=== PATIENT | female | born 1945 | race Caucasian/White ===

== ENCOUNTER 2021-01-07 01:50 | Observation (INO) | payer MEDICARE ==
[2021-01-07] VITALS (9 sets, daily range): BP systolic 117–133; BP diastolic 52–96; PULSE 74–96; TEMP 98.2–98.7
[~2021-01-07] VITALS: Ht 157.5 cm; Wt 45.4 kg
--- NOTE | 2021-01-07 06:33 | NUR ---
Arrived to room 330 via stretcher from transfer hospital. Lab notified of arrival and need for STAT CBC.
[2021-01-07 06:48] LABS: BASO % 0.4 % (0.0-2.0); EOS # 0.1 (0.0-0.7); EOS % 0.9 % (0-4.0); GRAN # 8.1 (1.4-6.5); GRAN % 85.2 % (42.2-75.2); HEMOGLOBIN 11.3 g/dl (12.5-16.0); LYMPH # 0.4 (1.2-3.4); LYMPH % 4.6 % (20.0-51.0); MEAN CELL VOLUME 98 fl (80.0-100.0); MEAN CORPUSCULAR HEMOGLOBIN 31 pg (27.0-31.0); MEAN CORPUSCULAR HGB CONC 32 g/dl (33.0-37.0); MEAN PLATELET VOLUME 11.5 fl (7.4-10.4); MONO # 0.8 (0.1-0.6); MONO % 8.5 % (1.7-9.3); PLATELET COUNT 170 K/mm3 (130-400); REDCELL DISTRIBUTION WIDTH-CV 13.5 % (11.5-14.5)
[2021-01-07 06:53] LABS: HEMATOCRIT 35.3 % (37.0-47.0)
[2021-01-07] MEDS ORDERED: NEURONTIN100 MG/CAP PO (07:07)
[2021-01-07] MEDS ORDERED: CYMBALTA 20MG20 MG PO (07:08)
[2021-01-07] MEDS ORDERED: ARICEPT10 MG PO (07:08)
[2021-01-07] MEDS ORDERED: ALEVE 220MG220 MG PO (07:09)
[2021-01-07] MEDS ORDERED: FLOMAX 0.40.4 MG/CAP PO (07:14)
[2021-01-07] MEDS ORDERED: ZITHROMAX500 M2 PO (07:15)
[2021-01-07] MEDS ORDERED: CIPRO 500MG TA500 MG PO (07:15)
--- NOTE | 2021-01-07 12:06 | NUR ---
Pt has ate drank, peed and pain has improved, feels ready to leave. Discharge paperwork and instructions reviewed with patient and her . All questions answered at this time. IV to RFA dc'd catheter tip intact. Pt wheeled out of facility at this time by staff member.
== END 2021-01-07 12:08 | disposition home or self-care (01) ==
LOC: MEDICAL 01:50 → SURG 06:23
PROVIDERS: ADMIT Urology
DX: N13.30 Unspecified hydronephrosis (principal); M19.90 Unspecified osteoarthritis, unspecified site; Z79.1 Long term (current) use of non-steroidal anti-inflammatories (NSAID)
CPT/HCPCS: C1769; C2617; G0378; G0379; J0690; J2405; J2704; J3010; J7121; Q9967